=== PATIENT | female | born 1980 | race Two or more races ===

== ENCOUNTER 2017-08-28 19:33 | Emergency (ER) | payer OTHER ==
[~2017-08-28] VITALS: Ht 154.9 cm; Wt 77.1 kg
[2017-08-28 19:35] VITALS: BP 139/83
[2017-08-28 19:50] VITALS: BP 139/83
--- NOTE | 2017-08-28 19:55 | Emergency Room Report ---
History of Present Illness General Chief Complaint: Laceration Source: Patient, EMS Present Illness HPI [id number] BIBEMS with [employer] after being tased to back Patient tried to resist officers at home checking probation violation on son Was tased Then patient c/o SOB Denies smoking, history of DVT/PE, COPD/asthma, CHF, CAD Denies recent fever/chills, cough HPI limited as patient does not want to provide more information at this time Allergies: Coded Allergies: No Known Allergies (Unverified , 08/28/17) Patient History Past Medical History: none Past Surgical History: none Pertinent Family History: none Social History: Denies: smoking, alcohol use, drug use Last Menstrual Period: 08/08/17 Now: No : 5 Para: 5 Immunizations: UTD Reviewed Nursing Documentation: PMH: Agreed; PSxH: Agreed Nursing Documentation-PMH Past Medical History: No History, Except For Review of Systems All Other Systems: negative except mentioned in HPI Physical Exam Vital Signs Date Time Temp Pulse Resp B/P (MAP) Pulse Ox O2 Delivery O2 Flow Rate FiO2 08/28/17 19:33 99.4 134 22 139/83 100 Room Air 99.3 Sp02 EP Interpretation: reviewed, normal General Appearance: normal inspection, well appearing, no apparent distress, alert, GCS 15, non-toxic Head: normocephalic, atraumatic Eyes: bilateral eye PERRL, bilateral eye EOMI ENT: normal ENT inspection, hearing grossly normal, normal pharynx, no angioedema, normal voice, TMs + canals normal, uvula midline, moist mucus membranes Neck: normal inspection, full range of motion, supple, thyroid normal, no meningismus, no bony tend Respiratory: normal inspection, lungs clear, normal breath sounds, no rhonchi, no respiratory distress, no retraction, no accessory muscle use, no wheezing, speaking full sentences Cardiovascular #1: regular rate, rhythm, no edema, no JVD, normal capillary refill Gastrointestinal: normal inspection, normal bowel sounds, non tender, soft, no mass, no peritonitis, non-distended, no guarding, no hernia, no pulsatile mass Genitourinary: no CVA tenderness Musculoskeletal: normal inspection, normal range of motion, no calf tenderness , pelvis stable, Jason's Sign negative, other - Lower back: 2 superifical taser barbs in skin, no significant hemorrage. Neurologic: normal inspection, alert, oriented x3, responsive, director of retention III-XII nml as tested, motor strength/tone normal, cerebellar normal, normal gait, speech normal Psychiatric: normal inspection, judgement/insight normal, mood/affect normal, no suicidal/homicidal ideation, no delusions Skin: normal inspection, normal color, no rash Lymphatic: normal inspection, no adenopathy Medical Decision Making Diagnostic Impression: Primary Impression: Medical clearance for incarceration Additional Impression: Taser injury Qualified Codes: T75.4XXA - Electrocution, initial encounter ER Course VSS, afebrile Lungs CTAB - no wheezing or rhonci Supericial taser barbs removed by SOCORRO Finney No significant hemorrage patient's reported SOB likely reactionary from stress/tasing/arrest DC with [employer] custody Last Vital Signs Date Time Temp Pulse Resp B/P (MAP) Pulse Ox O2 Delivery O2 Flow Rate FiO2 08/28/17 19:50 99.3 135 22 139/83 100 Room Air 99.3 Status: improved Disposition: D/C TO LAW ENFORCEMENT IN [facility] Condition: Improved Scripts Unable to Obtain Active Prescriptions or Reported Meds Referrals: NOT CHOSEN IPA/MD,REFERRING (PCP) Departure Forms: [facility] Clearance Additional Instructions: - barbs from taser removed - Medically cleared for booking JOEL SANTIZO M.D. Aug 28, 2017 19:55
== END 2017-08-28 19:50 ==
LOC: EDBD 19:33 → EMR 19:38
DX: S30.850A Superficial foreign body of lower back and pelvis, initial encounter (principal); Y35.893A Legal intervention involving other specified means, suspect injured, initial encounter; Y92.9 Unspecified place or not applicable
CPT/HCPCS: 99283